=== PATIENT | male | born 1975 | race African-American/Black ===

== ENCOUNTER 2016-07-23 16:12 | Emergency (ER) | payer SELFPAY ==
[~2016-07-23 16:12] MED LIST: OXYC-323 PO
[2016-07-23 17:00] VITALS: BP 155/75
[2016-07-23] MEDS ORDERED: NAPROXEN 500 MG TABLET PO STA (17:23)
[2016-07-23] MEDS ORDERED: NAPR500T8 PO (17:36)
--- NOTE | 2016-07-23 17:37 | PHYS DOC ---
Past Medical History Past Medical History: Other Additional Past Medical Histor: chronic back pain Past Surgical History: Other Additional Past Surgical Histo: testicular surgery as a child Additional Information: 2 ppd Alcohol Use: Occasionally Drug Use: None Adult General Chief Complaint Chief Complaint: ANKLE PROBLEM HPI HPI Patient is a 40 year old left ankle pain that began today, patient states he was running with family members playing around when he rolled his ankle. Review of Systems Review of Systems Constitutional: Denies fever or chills [] Eyes: Denies change in visual acuity, redness, or eye pain [] Musculoskeletal: Left lateral ankle pain Integument: Denies rash or skin lesions [] Neurologic: Denies headache, focal weakness or sensory changes [] Endocrine: Denies polyuria or polydipsia [] Current Medications Current Medications Current Medications Medications (Trade) Dose Ordered Sig/Jaylen Start Time Stop Time Status Last Admin Dose Admin Naproxen (Naprosyn) 500 mg 1X STAT 07/23/16 17:23 07/23/16 17:25 DC Allergies Allergies Allergies Coded Allergies Type Severity Reaction Last Updated Verified No Known Drug Allergies 06/30/13 No Physical Exam Physical Exam Constitutional: Well developed, well nourished, no acute distress, non-toxic appearance. [] Skin: Warm, dry, no erythema, no rash. [] Back: No tenderness, no CVA tenderness. [] Extremities: Left ankle with no obvious deformity. Mild amount of soft tissue swelling noted on the left lateral ankle. Tenderness on palpation of the left lateral ankle. Full range of motion to the left ankle and foot. +2 left pedal pulse. Cap refill is 2 seconds and left lower extremity. Sensation intact to the left lower extremity. Neurologic: Alert and oriented X 3, normal motor function, normal sensory function, no focal deficits noted. [] Psychologic: Affect normal, judgement normal, mood normal. [] Current Patient Data Vital Signs Vital Signs Date Time Temp Pulse Resp B/P Pulse Ox O2 Delivery O2 Flow Rate FiO2 07/23/16 17:00 98.8 80 18 100 Room Air 98.8 EKG EKG [] Radiology/Procedures Radiology/Procedures [] Course & Med Decision Making Course & Med Decision Making Pertinent Labs and Imaging studies reviewed. (See chart for details) Patient is in the ED with left ankle sprain after rolling it. Left ankle x-ray interpreted by Dr. Saxena is negative for any acute findings. Patient was placed in an Aircast by the supply tech, neurovascular exam done but is normal, cap refill less than 2 seconds ice elevation encouraged. Discharged with naproxen for pain. Dragon Disclaimer Dragon Disclaimer This electronic medical record was generated, in whole or in part, using a voice recognition dictation system. Departure Departure Impression: Primary Impression: Left ankle sprain Disposition: HOME, SELF-CARE Condition: STABLE Referrals: NO PCP (PCP) MAGALI MARTIN II, MD Follow-up with the provided orthopedic doctor in one week Patient Instructions: Ankle Sprain Additional Instructions: You have left ankle sprain. Wear the air cast as needed and tolerated. Ice and elevate the extremity. Take anti-inflammatories or Tylenol as needed for pain. Follow-up with orthopedic doctor provided in one week if pain continues. Scripts Naproxen 500 Mg Tablet.dr1 Tab PO BID #60 TAB Ref 2 Prov:LOUIE SOL APRN 07/23/16 Problem Qualifiers Primary Impression: Left ankle sprain Encounter type: initial encounter Involved ligament of ankle: unspecified ligament Qualified Code: S93.402A - Sprain of unspecified ligament of left ankle, initial encounter LOUIE SOL APRN Jul 23, 2016 17:37
--- NOTE | 2016-07-24 11:14 | RAD ---
Three-view left ankle radiographs 07/23/2016 Clinical history: Twisting injury to the left ankle while running. AP, lateral and oblique digital radiographs of the left ankle were obtained. The left ankle mortise is intact. No fracture or dislocation of the left ankle is seen. Impression: No fracture or dislocation of the left ankle is seen.
== END 2016-07-23 17:45 | disposition home or self-care (01) ==
LOC: ER 16:12
DX: S93.402A Sprain of unspecified ligament of left ankle, initial encounter (principal); G89.29 Other chronic pain; F17.200 Nicotine dependence, unspecified, uncomplicated; X50.9XXA Other and unspecified overexertion or strenuous movements or postures, initial encounter; Y93.89 Activity, other specified; Y99.8 Other external cause status; Y92.89 Other specified places as the place of occurrence of the external cause
CPT/HCPCS: 73610; 99284; L4350

== ENCOUNTER 2016-08-21 22:28 | Emergency (ER) | payer SELFPAY ==
[~2016-08-21] VITALS: Ht 172.7 cm; Wt 86.2 kg
[~2016-08-21 22:28] MED LIST changes: +NAPR500T8 PO
[2016-08-21 22:44] VITALS: BP 156/95
[2016-08-21] MEDS ORDERED: LIDO20SO PO (23:02)
[2016-08-21] MEDS ORDERED: BENZ100C PO (23:02)
[2016-08-21] MEDS ORDERED: PROAIR RESPICL90 MCG IH (23:02)
[2016-08-21] MEDS ORDERED: PRED50TA PO (23:02)
--- NOTE | 2016-08-21 23:02 | PHYS DOC ---
Past Medical History Past Medical History: Other Additional Past Medical Histor: chronic back pain Past Surgical History: Other Additional Past Surgical Histo: testicular surgery as a child Alcohol Use: Occasionally Drug Use: None Adult General Chief Complaint Chief Complaint: COUGH HPI HPI Patient is a 40 year old male with history of smoking who presents today with a productive cough and sore throat that began yesterday. Patient denies any fever. He states he has been told by the mother before he has high blood pressure but never followed up. Review of Systems Review of Systems Constitutional: Denies fever or chills [] Eyes: Denies change in visual acuity, redness, or eye pain [] HENT: sore throat [] Respiratory: cough Cardiovascular: No additional information not addressed in HPI [] GI: Denies abdominal pain, nausea, vomiting, bloody stools or diarrhea [] : Denies dysuria or hematuria [] Musculoskeletal: Denies back pain or joint pain [] Integument: Denies rash or skin lesions [] Neurologic: Denies headache, focal weakness or sensory changes [] Endocrine: Denies polyuria or polydipsia [] Allergies Allergies Allergies Coded Allergies Type Severity Reaction Last Updated Verified No Known Drug Allergies 06/30/13 No Physical Exam Physical Exam Constitutional: Well developed, well nourished, no acute distress, non-toxic appearance. [] HENT: Normocephalic, atraumatic, bilateral external ears normal, oropharynx moist, no oral exudates, nose normal. [] Eyes: PERRLA, EOMI, conjunctiva normal, no discharge. [] Neck: Normal range of motion, no tenderness, supple, no stridor. [] Cardiovascular:Heart rate regular rhythm, no murmur [] Lungs & Thorax: Bilateral breath sounds clear to auscultation [] Abdomen: Bowel sounds normal, soft, no tenderness, no masses, no pulsatile masses. [] Skin: Warm, dry, no erythema, no rash. [] Back: No tenderness, no CVA tenderness. [] Extremities: No tenderness, no cyanosis, no clubbing, ROM intact, no edema. [] Neurologic: Alert and oriented X 3, normal motor function, normal sensory function, no focal deficits noted. [] Psychologic: Affect normal, judgement normal, mood normal. [] Current Patient Data Vital Signs Vital Signs Date Time Temp Pulse Resp B/P (MAP) Pulse Ox O2 Delivery O2 Flow Rate FiO2 08/21/16 22:44 98.1 84 18 98 Room Air 98.1 EKG EKG [] Radiology/Procedures Radiology/Procedures [] Course & Med Decision Making Course & Med Decision Making Pertinent Labs and Imaging studies reviewed. (See chart for details) This is a 40-year-old male patient with complaints of sore throat and a cough that began yesterday. Negative rapid strep. Patient has history of smoking. We highly recommended he consider smoking cessation. Symptoms are probably viral pharyngitis and viral bronchitis. Discharged with prednisone for 5 days albuterol inhaler and Tessalon Perles. Discharged with lidocaine viscous for sore throat. His blood pressure was 159/95, he states he has been told by the mother he has hypertension but has never followed up. We did give him a primary care doctor we recommended he follows up as soon as possible. Dragon Disclaimer Dragon Disclaimer This electronic medical record was generated, in whole or in part, using a voice recognition dictation system. Departure Departure Impression: Primary Impression: Acute bronchitis Additional Impressions: Viral pharyngitis Smoking addiction High blood pressure Disposition: HOME, SELF-CARE Condition: STABLE Referrals: NO PCP (PCP) Please follow-up with a primary care doctor from the list provided Patient Instructions: Acute Bronchitis, Hypertension, Smoking Cessation, Viral and Bacterial Pharyngitis, [id number] Additional Instructions: You were seen for acute bronchitis and viral pharyngitis. Please use the prescribed medicines as ordered. Please consider smoking cessation. Your blood pressure was 159/95 in the emergency room. This is high. Normal blood pressure is 120/80. Establish care with a primary care doctor from the list provided and follow-up as soon as possible. Scripts Lidocaine Hcl (LIDOCAINE HCL VISCOUS) 20 Mg/1 Ml Solution 5 ML PO TID, #100 ML Prov: MUTUNGALOUIE CONTRACT ATTORNEY 08/21/16 Benzonatate (TESSALON PERLE) 100 Mg Capsule 1 CAP PO TID, #30 CAP Prov: MUTUNGA,LOUIE CONTRACT ATTORNEY 08/21/16 Prednisone (PREDNISONE) 50 Mg Tablet 1 TAB PO DAILY, #5 TAB Prov: MUTUNGA,LOUIE CONTRACT ATTORNEY 08/21/16 Albuterol Sulfate (Proair Respiclick) 90 Mcg Aer.pow.ba 1 PUFF IH PRN Q6HRS Y for SHORTNESS OF BREATH, #1 INHALER Prov: LOUIE SOL CONTRACT ATTORNEY 08/21/16 Problem Qualifiers Primary Impression: Acute bronchitis Bronchitis organism: unspecified organism Qualified Codes: J20.9 - Acute bronchitis, unspecified Additional Impressions: High blood pressure Hypertension type: unspecified secondary hypertension Qualified Codes: I15.9 - Secondary hypertension, unspecified LOUIE SOL CONTRACT ATTORNEY August 21, 2016 23:02
[2016-08-22 07:53] LABS: NEGATIVE OBC STREP NEG; POSITIVE OBC STREP POS
== END 2016-08-21 23:05 | disposition home or self-care (01) ==
LOC: ER 22:28
DX: J20.9 Acute bronchitis, unspecified (principal); J02.8 Acute pharyngitis due to other specified organisms; B97.89 Other viral agents as the cause of diseases classified elsewhere; R03.0 Elevated blood-pressure reading, without diagnosis of hypertension; F17.200 Nicotine dependence, unspecified, uncomplicated; G89.29 Other chronic pain
CPT/HCPCS: 87070; 87880; 99283

== ENCOUNTER 2016-11-18 17:17 | Emergency (ER) | payer SELFPAY ==
[~2016-11-18] VITALS: Ht 172.7 cm; Wt 86.2 kg
[~2016-11-18 17:17] MED LIST changes: +BENZ100C PO; +LIDO20SO PO; +PRED50TA PO; +PROAIR RESPICL90 MCG IH
[2016-11-18 18:01] LABS: BASO % 1 % (0-3); EOS % 3 % (0-3); HEMOGLOBIN 14.5 g/dL (13.0-17.5); LYMPH # 2.2 x10^3/uL (1.0-4.8); LYMPH % 28 % (24-48); MEAN CORPUSCULAR HEMOGLOBIN 31 pg (25-35); MEAN CORPUSCULAR HGB CONC 34 g/dL (31-37); MEAN CORPUSCULAR VOLUME 90 fL (79-100); MONO % 8 % (0-9); NEUT % 60 % (31-73); PLATELET COUNT 254 x10^3/uL (140-400); RED BLOOD COUNT 4.76 x10^6/uL (4.30-5.70); RED CELL DISTRIBUTION WIDTH 13.9 % (11.5-14.5); WHITE BLOOD COUNT 7.8 x10^3/uL (4.0-11.0)
[2016-11-18 18:25] LABS: CALCIUM 9.1 mg/dL (8.5-10.1); CREATININE 1.1 mg/dL (0.7-1.3); GFR 90.2; POTASSIUM 3.6 mmol/L (3.5-5.1)
[2016-11-18 18:32] LABS: ALBUMIN 3.9 g/dL (3.4-5.0); TOTAL BILIRUBIN 0.4 mg/dL (0.2-1.0); TOTAL PROTEIN 7.9 g/dL (6.4-8.2)
[2016-11-18] MEDS ORDERED: KETOROLAC 15 MG/ML VIAL. IV ONE (19:00)
[2016-11-18] MEDS ORDERED: amLODIPine BESYLATE 5 MG TABLET PO ONE (19:00)
[2016-11-18] MEDS ORDERED: ONDANSETRON PF 4 MG/2 ML VIAL. IV ONE (19:00)
[2016-11-18] MEDS ORDERED: HYDROmorphone 2 MG/ML VIAL IV ONE (19:00)
[2016-11-18 19:52] LABS: BARBITURATES NEG (NEG); BENZODIAZEPINES NEG (NEG); BILIRUBIN,URINE NEGATIVE (NEG); CANNABINOIDS NEG (NEG); COCAINE NEG (NEG); GLUCOSE,URINE NEGATIVE (NEG); METHADONE NEG (NEG); NITRITE,URINE NEGATIVE (NEG); OPIATES NEG (NEG); PHENCYCLIDINE NEG (NEG); PROTEIN,URINE NEGATIVE (NEG-TRACE)
[2016-11-18 20:00] VITALS: BP 138/84
[2016-11-18] MEDS ORDERED: AMLO10TA4 PO (20:02)
[2016-11-18] MEDS ORDERED: IBUP-1007 PO (20:02)
--- NOTE | 2016-11-18 20:04 | PHYS DOC ---
Past Medical History Past Medical History: No Pertinent History Additional Past Medical Histor: chronic back pain Past Surgical History: Other Additional Past Surgical Histo: testicular surgery as a child Additional Information: 1 PACK/DAY Alcohol Use: Occasionally Drug Use: None Adult General Chief Complaint Chief Complaint: Palpitations HPI HPI Patient is a 40 year old gentleman who presents here today secondary to having headache. Patient also reports that he felt some fluttering in his chest. Patient has any hypertension diabetes liver longer kidney problems. Patient has any abdominal or chest surgeries. Patient reports he does smoke and does not drink or do any drugs. Patient has no known drug allergies. Patient has any fevers shakes chills nausea vomiting diarrhea. Patient reports she's had some URI symptoms or cough. Patient has any chest pain or shortness of breath. Patient reports she's had headaches in the past and is very similar to his prior headaches. Usually is able to take [id number] medications however today he just did not feel well so he came to the ER. Patient denies any pain rating his arm his jaw his back. Patient has any diaphoresis shortness of breath. Patient denies any exertional component to the fluttering in his chest. Review of systems: Constitutional: Denies fever or chills Eyes: Denies change in visual acuity, redness, or eye pain HENT: Denies nasal congestion or sore throat All other review systems are negative except as documented in the history of present illness portion. Physical exam: Constitutional: Well developed, well nourished, no acute distress, non-toxic appearance. Normal funduscopic exam HENT: Normocephalic, atraumatic, bilateral external ears normal, nose normal. Eyes: EOMI, conjunctiva normal, no discharge. Neck: Normal range of motion, no tenderness, supple, no stridor. Cardiovascular:Heart rate regular rhythm Lungs & Thorax: Bilateral breath sounds clear to auscultation no respiratory distress Abdomen: Bowel sounds normal, soft, no tenderness, no masses, no pulsatile masses. Skin: Warm, dry, no erythema, no rash. Back: No tenderness, no CVA tenderness. Extremities: No tenderness, no cyanosis, no clubbing, ROM intact, no edema. Neurologic: Alert and oriented X 3, normal motor function, normal sensory function, no focal deficits noted. Psychologic: Affect normal, judgement normal, mood normal. Patient's physical exam the ER was unremarkable. EKG reveals Normal sinus rhythm at a heart rate of [address]-T wave abnormalities. No evidence of ST elevation [place]. Normal intervals and no evidence of LVH. Interpreted by ANNEL Acosta. Patient's ER workup is unremarkable. Patient has a normal CBC and chemistry. Patient's blood pressure was elevated in the ER. Despite be contributing to his headache. Assessment and plan 1. Migraine headache. Patient's clinically and hemodynamically stable. Patient be given Toradol and Zofran and 0.5 Dilaudid was resolution of his headache. Patient feels much better. Patient is now laughing and joking in the room and feels well to go home. 2. Hypertension. Etiology of the patient's hypertension is unclear. This is likely hereditary. I discussed with the patient is need to follow-up with his primary care physician in order to be treated long-term. Patient understands that this might be a result of his headache or might be exacerbating his headache. Patient be treated for his headache in the ED and his blood pressure still mildly elevated. Patient has been given a dose of Norvasc 10 mg by mouth in the ED. Patient be discharged home with prescription for 10 mg of Norvasc daily and instructions to follow-up with primary care physician for further evaluation and management of his hypertension. 3. Palpitations: Patient's clinically and hemodynamically stable. Patient's EKG is unremarkable. Patient is low risk for cardiac etiology of his symptoms. Patient will be discharged home in stable condition with instructions to follow- up with his primary care physician for possible Holter monitoring to further evaluate these symptoms. Current Medications Current Medications Current Medications Medications (Trade) Dose Ordered Sig/Jaylen Start Time Stop Time Status Last Admin Dose Admin Amlodipine Besylate (Norvasc) 10 mg 1X ONCE 11/18/16 19:00 11/18/16 19:01 DC 11/18/16 19:04 10 MG Hydromorphone HCl (Dilaudid) 0.5 mg 1X ONCE 11/18/16 19:00 11/18/16 19:01 DC 11/18/16 19:03 0.5 MG Ketorolac Tromethamine (Toradol) 15 mg 1X ONCE 11/18/16 19:00 11/18/16 19:01 DC 11/18/16 19:03 15 MG Ondansetron HCl (Zofran) 4 mg 1X ONCE 11/18/16 19:00 11/18/16 19:01 DC 11/18/16 19:03 4 MG Allergies Allergies Allergies Coded Allergies Type Severity Reaction Last Updated Verified No Known Drug Allergies 06/30/13 No Current Patient Data Vital Signs Vital Signs Date Time Temp Pulse Resp B/P (MAP) Pulse Ox O2 Delivery O2 Flow Rate FiO2 11/18/16 19:04 83 155/96 11/18/16 17:26 99.2 18 97 Room Air 99.2 Lab Values Laboratory Tests Test 11/18/16 17:40 11/18/16 19:38 White Blood Count 7.8 x10^3/uL (4.0-11.0) Red Blood Count 4.76 x10^6/uL (4.30-5.70) Hemoglobin 14.5 g/dL (13.0-17.5) Hematocrit 43.0 % (39.0-53.0) Mean Corpuscular Volume 90 fL (79-100) Mean Corpuscular Hemoglobin 31 pg (25-35) Mean Corpuscular Hemoglobin Concent 34 g/dL (31-37) Red Cell Distribution Width 13.9 % (11.5-14.5) Platelet Count 254 x10^3/uL (140-400) Neutrophils (%) (Auto) 60 % (31-73) Lymphocytes (%) (Auto) 28 % (24-48) Monocytes (%) (Auto) 8 % (0-9) Eosinophils (%) (Auto) 3 % (0-3) Basophils (%) (Auto) 1 % (0-3) Neutrophils # (Auto) 4.7 x10^3uL (1.8-7.7) Lymphocytes # (Auto) 2.2 x10^3/uL (1.0-4.8) Monocytes # (Auto) 0.7 x10^3/uL (0.0-1.1) Eosinophils # (Auto) 0.2 x10^3/uL (0.0-0.7) Basophils # (Auto) 0.0 x10^3/uL (0.0-0.2) Sodium Level 143 mmol/L (136-145) Potassium Level 3.6 mmol/L (3.5-5.1) Chloride Level 104 mmol/L (98-107) Carbon Dioxide Level 28 mmol/L (21-32) Anion Gap 11 (6-14) Blood Urea Nitrogen 20 mg/dL (8-26) Creatinine 1.1 mg/dL (0.7-1.3) Estimated GFR (Cockcroft-Gault) 90.2 BUN/Creatinine Ratio 18 (6-20) Glucose Level 112 mg/dL (70-99) H Calcium Level 9.1 mg/dL (8.5-10.1) Total Bilirubin 0.4 mg/dL (0.2-1.0) Aspartate Amino Transferase (AST) 17 U/L (15-37) Alanine Aminotransferase (ALT) 33 U/L (16-63) Alkaline Phosphatase 56 U/L (46-116) Troponin I Quantitative < 0.017 ng/mL (0.000-0.055) Total Protein 7.9 g/dL (6.4-8.2) Albumin 3.9 g/dL (3.4-5.0) Albumin/Globulin Ratio 1.0 (1.0-1.7) Urine Opiates Screen Neg (NEG) Urine Methadone Screen Neg (NEG) Urine Barbiturates Neg (NEG) Urine Phencyclidine Screen Neg (NEG) Urine Amphetamine/Methamphetamine Neg (NEG) Urine Benzodiazepines Screen Neg (NEG) Urine Cocaine Screen Neg (NEG) Urine Cannabinoids Screen Neg (NEG) Urine Ethyl Alcohol Neg (NEG) Laboratory Tests 11/18/16 17:40 Laboratory Tests 11/18/16 17:40 EKG EKG [] Radiology/Procedures Radiology/Procedures [] Course & Med Decision Making Course & Med Decision Making Pertinent Labs and Imaging studies reviewed. (See chart for details) [] Dragon Disclaimer Dragon Disclaimer This electronic medical record was generated, in whole or in part, using a voice recognition dictation system. Departure Departure Impression: Primary Impression: Hypertension Additional Impressions: Palpitations Migraine headache Disposition: HOME, SELF-CARE Condition: IMPROVED Referrals: NO PCP (PCP) Patient Instructions: Hypertension, Migraine Headache, Palpitations Additional Instructions: Thank you for allowing us to participate in your care today. Followup with your primary care physician in 3 days if your symptoms do not improve. Call your Primary Doctor tomorrow and inform them of your visit today. If you do not have a primary care provider you can ask for a list of our primary care providers. Return to the emergency department you have any new or concerning findings. This should be evaluated by the primary care physician and any necessary consulting services for continued management within a few days after discharge. Return to emergency room if you have any new or concerning symptoms including but not limited to fever, chills, nausea, vomiting, intractable pain, any new rashes, chest pain, shortness of air, uncontrolled bleeding, difficulty breathing, and/or vision loss. You may have been prescribed medication that can change in your level of thinking and ability to operate machinery. These medications include hydrocodone and Ativan. Also, Benadryl has been known to do this as well. Be sure to check with your pharmacist and ask if the medications you've prescribed can affect your level of consciousness. I recommend not operating heavy machinery or driving while on medication such as these. Scripts Amlodipine Besylate (NORVASC) 10 Mg Tablet 10 MG PO DAILY, #30 TAB Prov: MELISSA ENGLE MD 11/18/16 Ibuprofen (IBUPROFEN) 600 Mg Tablet 600 MG PO PRN Q6HRS Y for PAIN, #20 TAB Prov: MELISSA ENGLE MD 11/18/16 Problem Qualifiers MELISSA ENGLE MD Nov 18, 2016 20:04
[2016-11-18 20:17] LABS: BACTERIA,URINE FEW /HPF (0-FEW); RBC,URINE 0 /HPF (0-2); SQUAMOUS EPITHELIAL CELL,UR OCC /LPF
--- NOTE | 2016-11-19 07:14 | EKG ---
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
== END 2016-11-18 20:30 | disposition home or self-care (01) ==
LOC: ER 17:17
DX: I10 Essential (primary) hypertension (principal); R00.2 Palpitations; G43.909 Migraine, unspecified, not intractable, without status migrainosus; G89.29 Other chronic pain; F17.210 Nicotine dependence, cigarettes, uncomplicated
CPT/HCPCS: 36415; 80053; 80307; 81001; 84484; 85025; 87086; 93005; 96374; 96375; 99285; J1170; J1885; J2405; G0479

== ENCOUNTER 2017-02-25 17:44 | Emergency (ER) | payer BC ==
[~2017-02-25] VITALS: Ht 172.7 cm; Wt 98.4 kg
[~2017-02-25 17:44] MED LIST changes: +AMLO10TA4 PO; +IBUP-1007 PO
[2017-02-25 17:45] VITALS: BP 134/84
[2017-02-25 18:02] LABS: BILIRUBIN,URINE NEGATIVE (NEG); GLUCOSE,URINE NEGATIVE (NEG); NITRITE,URINE NEGATIVE (NEG); PROTEIN,URINE NEGATIVE (NEG-TRACE)
[2017-02-25 18:10] LABS: BACTERIA,URINE 0 /HPF (0-FEW); RBC,URINE 0 /HPF (0-2); SQUAMOUS EPITHELIAL CELL,UR FEW /LPF
[2017-02-25] MEDS ORDERED: PHEN-318 PO (18:18)
--- NOTE | 2017-02-25 18:18 | PHYS DOC ---
Past Medical History Past Medical History: No Pertinent History Additional Past Medical Histor: chronic back pain Past Surgical History: Other Additional Past Surgical Histo: testicular surgery as a child Alcohol Use: Occasionally Drug Use: None Adult General Chief Complaint Chief Complaint: PAIN ON URINATION HPI HPI Patient is a 41 year old male presenting to the emergency department for evaluation of dysuria especially after he finishes his urine stream. This has been going on for 1-2 weeks and he says that he had sexual activity with someone that he is concerned may have given him something. He denies any discharge fevers chills abdominal pain nausea vomiting. He denies any penile lesions and he is in no obvious distress with normal vital signs. Review of Systems Review of Systems Constitutional: Denies fever or chills [] GI: Denies abdominal pain, nausea, vomiting, bloody stools or diarrhea [] : + dysuria Integument: Denies rash or skin lesions [] Current Medications Current Medications Current Medications Medications (Trade) Dose Ordered Sig/Jaylen Start Time Stop Time Status Last Admin Dose Admin Azithromycin (Zithromax) 1,000 mg 1X ONCE 02/25/17 18:30 02/25/17 18:31 02/25/17 18:05 1,000 MG Ceftriaxone Sodium (Rocephin Im) 250 mg 1X ONCE 02/25/17 18:30 02/25/17 18:31 02/25/17 18:06 250 MG Allergies Allergies Allergies Coded Allergies Type Severity Reaction Last Updated Verified No Known Drug Allergies 06/30/13 No Physical Exam Physical Exam Constitutional: Well developed, well nourished, no acute distress, non-toxic appearance. [] Abdomen: Bowel sounds normal, soft, no tenderness, no masses, no pulsatile masses. exam revealed no obvious swelling or penile lesions Current Patient Data Vital Signs Vital Signs Date Time Temp Pulse Resp B/P (MAP) Pulse Ox O2 Delivery O2 Flow Rate FiO2 02/25/17 17:45 98.0 77 16 97 Room Air 98.0 Lab Values Laboratory Tests Test 02/25/17 17:50 Urine Collection Type Unknown Urine Color Yellow Urine Clarity Clear Urine pH 7.0 Urine Specific [place] 1.025 Urine Protein Negative mg/dL (NEG-TRACE) Urine Glucose (UA) Negative mg/dL (NEG) Urine Ketones (Stick) Negative mg/dL (NEG) Urine Blood Negative (NEG) Urine Nitrite Negative (NEG) Urine Bilirubin Negative (NEG) Urine Urobilinogen Dipstick 1.0 mg/dL (0.2 mg/dL) Urine Leukocyte Esterase Small (NEG) Urine RBC 0 /HPF (0-2) Urine WBC 5-10 /HPF (0-4) Urine Squamous Epithelial Cells Few /LPF Urine Bacteria 0 /HPF (0-FEW) Urine Mucus Mod /LPF EKG EKG [] Radiology/Procedures Radiology/Procedures [] Course & Med Decision Making Course & Med Decision Making Patient will be treated with Rocephin and Zithromax and given per EMS and outpatient for the burning and told to have any partners treated or condoms and return with any concerns. Patient aware and agreeable with plan and verbalized understanding of the above instructions. Dragon Disclaimer Dragon Disclaimer This electronic medical record was generated, in whole or in part, using a voice recognition dictation system. Departure Departure Impression: Primary Impression: Dysuria Additional Impression: STD exposure Disposition: HOME, SELF-CARE Condition: STABLE Referrals: NO PCP (PCP) Patient Instructions: Dysuria Scripts Phenazopyridine Hcl (PYRIDIUM) 200 Mg Tablet 200 MG PO TID, #6 TAB Prov: VIOLETTA WILSON DO 02/25/17 Problem Qualifiers VIOLETTA WILSON DO Feb 25, 2017 18:18
[2017-02-25] MEDS ORDERED: AZITHROMYCIN 250 MG TABLET. PO ONE (18:30)
[2017-02-25] MEDS ORDERED: cefTRIAXone IM 250 MG VIAL IM ONE (18:30)
== END 2017-02-25 18:25 | disposition home or self-care (01) ==
LOC: ER 17:44
DX: R30.0 Dysuria (principal); Z20.2 Contact with and (suspected) exposure to infections with a predominantly sexual mode of transmission; G89.29 Other chronic pain
CPT/HCPCS: 81001; 87086; 87491; 87591; 96372; 99284; J0696; Q0144

== ENCOUNTER 2017-10-15 09:59 | Emergency (ER) | payer BC ==
[2017-10-15] MEDS: BUTALB/APAP/CAFEIN 50/325/40MG TABLET. PO ×2 (11:04)
== END 2017-10-15 12:25 | disposition home or self-care (01) ==
LOC: ER 09:59
DX: H66.93 Otitis media, unspecified, bilateral (principal); R51 Headache; G89.29 Other chronic pain; R09.81 Nasal congestion
CPT/HCPCS: 99283

== ENCOUNTER 2017-12-25 15:18 | Emergency (ER) | payer SELFPAY ==
[~2017-12-25] VITALS: Ht 172.7 cm; Wt 102.1 kg
[~2017-12-25 15:18] MED LIST changes: +AMOX875T PO; +BUTA1CAP31 PO; +BUTA1TAB23 PO; +PHEN-318 PO
[2017-12-25 15:56] LABS: BASO # 0.1 x10^3/uL (0.0-0.2); BASO % 1 % (0-3); EOS # 0.5 x10^3/uL (0.0-0.7); EOS % 7 % (0-3); HEMATOCRIT 41.6 % (39.0-53.0); HEMOGLOBIN 14.2 g/dL (13.0-17.5); LYMPH # 2.6 x10^3/uL (1.0-4.8); LYMPH % 39 % (24-48); MEAN CORPUSCULAR HEMOGLOBIN 31 pg (25-35); MEAN CORPUSCULAR HGB CONC 34 g/dL (31-37); MEAN CORPUSCULAR VOLUME 91 fL (79-100); MONO # 0.8 x10^3/uL (0.0-1.1); MONO % 12 % (0-9); NEUT # 2.7 x10^3uL (1.8-7.7); NEUT % 41 % (31-73); PLATELET COUNT 282 x10^3/uL (140-400); RED BLOOD COUNT 4.58 x10^6/uL (4.30-5.70); RED CELL DISTRIBUTION WIDTH 13.8 % (11.5-14.5); WHITE BLOOD COUNT 6.6 x10^3/uL (4.0-11.0)
[2017-12-25 16:06] LABS: CREATININE 1.1 mg/dL (0.7-1.3); GFR 89.3
[2017-12-25 16:13] LABS: ALBUMIN 3.5 g/dL (3.4-5.0); ALBUMIN/GLOBULIN RATIO 0.9 (1.0-1.7); TOTAL BILIRUBIN 0.3 mg/dL (0.2-1.0); TOTAL PROTEIN 7.5 g/dL (6.4-8.2)
--- NOTE | 2017-12-25 16:14 | PHYS DOC ---
Past Medical History Past Medical History: Hypertension Additional Past Medical Histor: chronic back pain Past Surgical History: Other Additional Past Surgical Histo: testicular surgery as a child Smoking: Cigarettes, Less than 1pk/day Alcohol Use: Occasionally Drug Use: None Adult General Chief Complaint Chief Complaint: CHEST PAIN HPI HPI 42-year-old male presents to ER via POV with complaints of waking from a nap at 2 PM and had onset of mid epigastric and chest pain. Patient states when pain started he rated at 8/10 denying radiation of pain. Patient reports with pain he felt slightly short of air denying any cough. Patient denies nausea or vomiting, diaphoresis, or palpitations. Pt reports pain is sharp in nature denying anything aggravates or improves discomfort. Patient states prior to nap he had chicken noodle soup with large amount of Cajun seasoning. Patient denies any recent illness or travel. Pt denies any heavy lifting or injuries. Pt reports since onset pain has improved with no OTC meds and currently rates at 5- 6/10. Pt during exam has concerns for clear penile discharge with some dysuria- denying rash, new sexual partners, or pain. Pt denies any previous STDs or partner with sxs. He denies concerns for STDs but requested tests. Pt reports he smokes approx. 1/2 ppd cigarettes. He doesn't think there's family hx of CAD. Review of Systems Review of Systems Constitutional: Denies fever or chills [] Eyes: Denies change in visual acuity, redness, or eye pain [] HENT: Denies nasal congestion or sore throat [] Respiratory: Denies cough. Reports when pain increased he felt SOA denies currently Cardiovascular: Reports mid epigastric/chest pain- denies palpitations. GI: Denies abdominal pain, nausea, vomiting, bloody stools or diarrhea [] : Denies hematuria/incontinence. Reports dysuria with clear discharge- denies odor with discharge or rash Musculoskeletal: Denies back pain or joint pain [] Integument: Denies rash or skin lesions [] Neurologic: Denies headache, focal weakness or sensory changes [] All other systems were reviewed and found to be within normal limits, except as documented in this note. Current Medications Current Medications Current Medications Medications (Trade) Dose Ordered Sig/Jaylen Start Time Stop Time Status Last Admin Dose Admin Aspirin (Children'S Aspirin) 324 mg 1X ONCE 12/25/17 16:00 12/25/17 16:01 DC 12/25/17 17:16 324 MG Multi-Ingredient Mouthwash/Gargle (Gi Cocktail) 20 ml 1X ONCE 12/25/17 16:00 12/25/17 16:01 DC 12/25/17 17:16 20 ML Allergies Allergies Allergies Coded Allergies Type Severity Reaction Last Updated Verified No Known Drug Allergies 06/30/13 No Physical Exam Physical Exam Constitutional: Well developed, well nourished, no acute distress, non-toxic appearance. [] HENT: Normocephalic, atraumatic, bilateral ears normal, oropharynx moist, no oral exudates, nose normal. [] Eyes: PERRLA, conjunctiva normal, no discharge. [] Neck: Normal range of motion, no tenderness, supple, no stridor. [] Cardiovascular:Heart rate regular rhythm, no murmur [] Lungs & Thorax: Bilateral breath sounds clear to auscultation. Resp. equal/ nonlabored. Speaking in full sentences Abdomen: Bowel sounds normal, soft, no tenderness, no masses, no pulsatile masses. [] Skin: Warm, dry, no erythema, no rash. [] Back: No tenderness, no CVA tenderness. [] Extremities: No tenderness, no cyanosis, no clubbing, ROM intact, no edema. [] Neurologic: Alert and oriented X 3, normal motor function, normal sensory function, no focal deficits noted. [] Psychologic: Affect normal, judgement normal, mood normal. [] Current Patient Data Vital Signs Vital Signs Date Time Temp Pulse Resp B/P (MAP) Pulse Ox O2 Delivery O2 Flow Rate FiO2 12/25/17 19:31 59 15 152/97 (115) 100 Room Air 12/25/17 15:30 98.1 98.1 Lab Values Laboratory Tests Test 12/25/17 15:36 12/25/17 16:10 12/25/17 18:25 White Blood Count 6.6 x10^3/uL (4.0-11.0) Red Blood Count 4.58 x10^6/uL (4.30-5.70) Hemoglobin 14.2 g/dL (13.0-17.5) Hematocrit 41.6 % (39.0-53.0) Mean Corpuscular Volume 91 fL (79-100) Mean Corpuscular Hemoglobin 31 pg (25-35) Mean Corpuscular Hemoglobin Concent 34 g/dL (31-37) Red Cell Distribution Width 13.8 % (11.5-14.5) Platelet Count 282 x10^3/uL (140-400) Neutrophils (%) (Auto) 41 % (31-73) Lymphocytes (%) (Auto) 39 % (24-48) Monocytes (%) (Auto) 12 % (0-9) H Eosinophils (%) (Auto) 7 % (0-3) H Basophils (%) (Auto) 1 % (0-3) Neutrophils # (Auto) 2.7 x10^3uL (1.8-7.7) Lymphocytes # (Auto) 2.6 x10^3/uL (1.0-4.8) Monocytes # (Auto) 0.8 x10^3/uL (0.0-1.1) Eosinophils # (Auto) 0.5 x10^3/uL (0.0-0.7) Basophils # (Auto) 0.1 x10^3/uL (0.0-0.2) Sodium Level 144 mmol/L (136-145) Potassium Level 4.0 mmol/L (3.5-5.1) Chloride Level 108 mmol/L (98-107) H Carbon Dioxide Level 27 mmol/L (21-32) Anion Gap 9 (6-14) Blood Urea Nitrogen 18 mg/dL (8-26) Creatinine 1.1 mg/dL (0.7-1.3) Estimated GFR (Cockcroft-Gault) 89.3 BUN/Creatinine Ratio 16 (6-20) Glucose Level 109 mg/dL (70-99) H Calcium Level 9.0 mg/dL (8.5-10.1) Total Bilirubin 0.3 mg/dL (0.2-1.0) Aspartate Amino Transferase (AST) 15 U/L (15-37) Alanine Aminotransferase (ALT) 23 U/L (16-63) Alkaline Phosphatase 60 U/L (46-116) Troponin I Quantitative < 0.017 ng/mL (0.000-0.055) < 0.017 ng/mL (0.000-0.055) Total Protein 7.5 g/dL (6.4-8.2) Albumin 3.5 g/dL (3.4-5.0) Albumin/Globulin Ratio 0.9 (1.0-1.7) L Lipase 145 U/L (73-393) Urine Collection Type Unknown Urine Color Yellow Urine Clarity Cloudy Urine pH 7.5 Urine Specific [place] 1.025 Urine Protein Negative mg/dL (NEG-TRACE) Urine Glucose (UA) Negative mg/dL (NEG) Urine Ketones (Stick) Negative mg/dL (NEG) Urine Blood Negative (NEG) Urine Nitrite Negative (NEG) Urine Bilirubin Negative (NEG) Urine Urobilinogen Dipstick 1.0 mg/dL (0.2 mg/dL) Urine Leukocyte Esterase Trace (NEG) Urine RBC 0 /HPF (0-2) Urine WBC 11-20 /HPF (0-4) Urine Squamous Epithelial Cells Mod /LPF Urine Amorphous Sediment Present /HPF Urine Bacteria 0 /HPF (0-FEW) Urine Mucus Mod /LPF Urine Chlamydia DNA (PCR) Negative (Negative) Neisseria gonorrhoeae DNA (PCR) Negative (Negative) Laboratory Tests 12/25/17 15:36 Laboratory Tests 12/25/17 15:36 EKG EKG EKG obtained 12/25/17 at [address] Arroyo Sinus rhythm Nonspecific T abnorm Vent rate 69 No acute STEMI Radiology/Procedures Radiology/Procedures PROCEDURE: CHEST PA & LATERAL AP and Lateral Views of the Chest 12/25/2017 3:52 PM Indication: MID EPIGASTRIC/CHEST PAIN X1 DAY. Comparison: None Findings: There is no focal consolidation or infiltrate identified. The cardiomediastinal silhouette is within normal limits. There is no evidence of pneumothorax or pleural effusion. No acute osseous abnormalities are identified. Impression: No evidence of acute cardiopulmonary process. Electronically signed by: Sean Fox MD (12/25/2017 4:14 PM) [id number] DICTATED and SIGNED BY: SEAN FOX MD DATE: 12/25/17 2656 Course & Med Decision Making Course & Med Decision Making Pertinent Labs and Imaging studies reviewed. (See chart for details) Discussed pt's case and plan of care with Dr. Arroyo- pt with HEART score of 1 with past hx of HTN and daily smoker as risk factors. Will give 324mg aspirin while tests pending. 1705: There was a delay with pt receiving ordered medications so he hasn't received GI cocktail and rates pain still at 5-6/10. Discussed test results with pt- chest xray with no acute findings- labs unremarkable and EKG with no acute STEMI- troponin <0.017. With pt having onset of chest pain at 2 p.m. discussed obtaining 2nd troponin while in ER to further r/o ACS. 1850: Discussed test results with pt with repeat troponin <0.017. Discussed UTI with UA showing 11-20 leuks neg. nitrates/blood. Pt reports following GI cocktail his pain subsided in mid epig/chest area and during this discussion he has no complaints remaining nontoxic in appearance. Discussed with neg. cardiac enzymes and no STEMI on EKG with pt being low risk- plans were to discharge pt home with Rx for Keflex for UTI. Discussed pending UA cxs and with pt having minimal concerns for STDs will hold off on tx. Pt advised to f/u on cxs in next 1-2 days for results. Smoking cessation was discussed and pt encouraged to increase water intake. Will provide community resources for clinics/physicians to f/u with. Discharge instructions were discussed and education provided on signs and symptoms to return to ER for. Patient is agreeable with discharge plan. Staff Physician Addendum: I was working in the ER during the course of this patient's visit. I was available for consultation as needed, but I was not directly involved in the care of this patient. Dragon Disclaimer Dragon Disclaimer This electronic medical record was generated, in whole or in part, using a voice recognition dictation system. Departure Departure Impression: Primary Impression: Chest pain Additional Impression: UTI (urinary tract infection) Disposition: HOME, SELF-CARE Condition: STABLE Referrals: NO PCP (PCP) Patient Instructions: Chest Pain (Nonspecific), Urinary Tract Infection Additional Instructions: Avoid spicy foods- recommended follow-up with primary doctor to discuss daily medications for acid reflux if symptoms persist. Stop smoking as this increases your risks of cardiac injury. Drink plenty of water and take finish antibiotics. If symptoms persist follow- up with primary doctor for re-evaluation. Your cultures are pending- follow-up on those results in next 1-2 days for results. Scripts Cephalexin (KEFLEX) 500 Mg Capsule 1 CAP PO BID, #14 CAP 0 Refills Prov: SHERIN SAHA OVERLOCK ELASTIC ATTACHER 12/25/17 Problem Qualifiers REFFITT,SHERIN M OVERLOCK ELASTIC ATTACHER Dec 25, 2017 16:14 LEIA ARROYO MD Dec 27, 2017 06:25
[2017-12-25 16:18] LABS: BILIRUBIN,URINE NEGATIVE (NEG); CLARITY,URINE CLOUDY; COLOR,URINE YELLOW; NITRITE,URINE NEGATIVE (NEG); PH,URINE 7.5; PROTEIN,URINE NEGATIVE (NEG-TRACE)
--- NOTE | 2017-12-25 16:18 | RAD ---
AP and Lateral Views of the Chest 12/25/2017 3:52 PM Indication: MID EPIGASTRIC/CHEST PAIN X1 DAY. Comparison: None Findings: There is no focal consolidation or infiltrate identified. The cardiomediastinal silhouette is within normal limits. There is no evidence of pneumothorax or pleural effusion. No acute osseous abnormalities are identified. Impression: No evidence of acute cardiopulmonary process. Electronically signed by: Sean Machado MD (12/25/2017 4:14 PM) [facility]
[2017-12-25 16:58] LABS: AMORPHOUS SEDIMENT,UR PRESENT /HPF; BACTERIA,URINE 0 /HPF (0-FEW); RBC,URINE 0 /HPF (0-2); SQUAMOUS EPITHELIAL CELL,UR MOD /LPF
[2017-12-25] MEDS: ASPIRIN CHEWABLE 81 MG TABLET. PO ONE (17:16)
[2017-12-25] MEDS: LIDO:MAALOX 1:1 20 ML SINGLE DOSE. SWSW ONE (17:16)
[2017-12-25] MEDS ORDERED: CEPH-264 PO (18:56)
[2017-12-25 19:31] VITALS: BP 152/97
--- NOTE | 2017-12-25 20:43 | EKG ---
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
== END 2017-12-25 19:55 | disposition home or self-care (01) ==
LOC: ER 15:18
DX: N39.0 Urinary tract infection, site not specified (principal); R07.89 Other chest pain; R10.13 Epigastric pain; G89.29 Other chronic pain; I10 Essential (primary) hypertension; F17.210 Nicotine dependence, cigarettes, uncomplicated
CPT/HCPCS: 36415; 71046; 80053; 81001; 83690; 84484; 85025; 87086; 87491; 87591; 93005; 99285-25

== ENCOUNTER 2018-05-26 18:07 | Emergency (ER) | payer SELFPAY ==
[~2018-05-26] VITALS: Ht 172.7 cm; Wt 97.5 kg
[~2018-05-26 18:07] MED LIST changes: +CEPH-264 PO; -OXYC-323 PO; +OXYC1TAB15 PO
[2018-05-26 19:16] VITALS: BP 146/94
[2018-05-26] MEDS ORDERED: CYCL10TA2 PO (19:26)
[2018-05-26] MEDS ORDERED: TRAM50TA PO (19:26)
--- NOTE | 2018-05-26 19:27 | PHYS DOC ---
Past Medical History Past Medical History: Hypertension, Other Additional Past Medical Histor: chronic back pain Past Surgical History: Other Additional Past Surgical Histo: testicular surgery as a child Alcohol Use: Occasionally Drug Use: None Adult General Chief Complaint Chief Complaint: BACK PAIN OR INJURY [facility] HPI Patient is a 42 year old -[place] male with history of hypertension, chronic back pain who presents with exacerbation of chronic back pain. Patient states he was doing heavy lifting about a week ago while at work. Reports diffuse low back pain which is nonradiating. Pain is worse with palpation movement. Denies loss of bowel or bladder function. No urinary fecal incontinence. No focal extremity weakness or loss of sensation. No other acute symptoms or complaints. Patient does not currently have a PCP and has not been treated for his current episode of back pain prior to today's ED visit.[] Review of Systems Review of Systems ROS as per HPI All other systems were reviewed and found to be within normal limits, except as documented in this note. Allergies Allergies Allergies Coded Allergies Type Severity Reaction Last Updated Verified No Known Drug Allergies 06/30/13 No Physical Exam Physical Exam Constitutional: Well developed, well nourished, no acute distress, non-toxic appearance. [] HENT: Normocephalic, atraumatic, bilateral external ears normal, oropharynx moist, nose normal. [] Eyes: PERRLA, EOMI, conjunctiva normal. [] Neck: Normal range of motion. [] Cardiovascular:Heart rate regular rhythm, no murmur. [] Lungs & Thorax: Bilateral breath sounds clear to auscultation. [] Abdomen: Bowel sounds normal, soft, no tenderness, no masses. [] Skin: Warm, dry, no erythema, no rash. [] Back: No midline tenderness, no CVA tenderness. Diffuse lower back pain, reproduces with palpation and trunk rotation.[] Extremities: No tenderness, no cyanosis, no clubbing, ROM intact, no edema. [] Neurologic: Alert and oriented X 3, normal motor function, normal sensory function, no focal deficits noted. [] Psychologic: Affect normal, judgement normal, mood normal. [] Current Patient Data Vital Signs Vital Signs Date Time Temp Pulse Resp B/P (MAP) Pulse Ox O2 Delivery O2 Flow Rate FiO2 05/26/18 19:16 98.6 81 18 146/94 (111) 97 Room Air 98.6 EKG EKG [] Radiology/Procedures Radiology/Procedures [] Course & Med Decision Making Course & Med Decision Making Pertinent Labs and Imaging studies reviewed. (See chart for details) [Exacerbation of chronic back pain. No neurologic deficits. Patient is well- known to this emergency department. Recommend supportive care with nonnarcotic pain medications and establishment with local primary care provider.] Dragon Disclaimer Dragon Disclaimer This electronic medical record was generated, in whole or in part, using a voice recognition dictation system. Departure Departure Disposition: HOME, SELF-CARE Condition: GOOD Referrals: NO PCP (PCP) Patient Instructions: Chronic Back Pain Additional Instructions: Please go home and rest. Avoid strenuous physical activity and heavy lifting. Follow-up with local primary care physician early next week for reevaluation. Take newly prescribed medications as directed. Scripts Cyclobenzaprine Hcl (CYCLOBENZAPRINE HCL) 10 Mg Tablet 1 TAB PO TID, #30 TAB Prov: KHADIJAH REBOLLEDO DO 05/26/18 Tramadol Hcl (TRAMADOL HCL) 50 Mg Tablet 50 MG PO Q6H PRN for PAIN for 3 Days, #15 TAB 0 Refills Prov: KHADIJAH REBOLLEDO DO 05/26/18 KHADIJAH REBOLLEDO DO May 26, 2018 19:27
== END 2018-05-26 19:36 | disposition home or self-care (01) ==
LOC: ER 18:07
DX: G89.29 Other chronic pain (principal); M54.5 Low back pain; I10 Essential (primary) hypertension
CPT/HCPCS: 99283

== ENCOUNTER 2018-07-12 22:36 | Emergency (ER) | payer BC ==
[~2018-07-12] VITALS: Ht 172.7 cm; Wt 95.3 kg
[~2018-07-12 22:36] MED LIST changes: +CYCL10TA2 PO; +TRAM50TA PO
[2018-07-12 23:44] VITALS: BP 138/81
--- NOTE | 2018-07-13 00:30 | RAD ---
INDICATION: HEADACHE COMPARISON: November 2009 TECHNIQUE: Axial CT images obtained through the head without intravenous contrast. One or more of the following individualized dose reduction techniques were utilized for this examination: 1. Automated exposure control; 2. Adjustment of the mA and/or kV according to patient size; 3. Use of iterative reconstruction technique. FINDINGS: No intracranial hemorrhage. No midline shift. Basal cisterns patent. Ventricles and sulci are unremarkable. No acute osseous abnormality. Minimal mucosal thickening portion of paranasal sinuses. IMPRESSION: 1. No acute intracranial hemorrhage. Electronically signed by: Isaiah Pastor MD (07/13/2018 12:27 AM) [facility]
[2018-07-13] MEDS: KETOROLAC 60 MG/2 ML VIAL. IM ONE ×2 (01:00→01:25)
[2018-07-13] MEDS: methylPREDNISolone SOD SUCC PF 125 MG/2 ML VIAL. IM ONE ×2 (01:00→01:25)
--- NOTE | 2018-07-13 01:34 | PHYS DOC ---
Past Medical History Past Medical History: No Pertinent History Additional Past Medical Histor: chronic back pain Past Surgical History: Other Additional Past Surgical Histo: TESTICULAR SURGERY IN CHILDHOOD Alcohol Use: Occasionally Drug Use: None Adult General Chief Complaint Chief Complaint: HEADACHE HPI HPI Patient is a 42 year old male presented ER today for evaluation of headache started just couple days ago. Patient denies any fever, no neck pain, no blurry vision. He has history of headache. No CT SCAN of his head was done before to evaluate for his headache. He denies any nausea vomiting. Review of Systems Review of Systems Constitutional: Denies fever or chills [] Eyes: Denies change in visual acuity, redness, or eye pain [] HENT: Denies nasal congestion or sore throat [] Respiratory: Denies cough or shortness of breath [] Cardiovascular: No additional information not addressed in HPI [] GI: Denies abdominal pain, nausea, vomiting, bloody stools or diarrhea [] : Denies dysuria or hematuria [] Musculoskeletal: Denies back pain or joint pain [] Integument: Denies rash or skin lesions [] Neurologic: Positive for headache, no focal weakness or sensory changes [] Endocrine: Denies polyuria or polydipsia [] All other systems were reviewed and found to be within normal limits, except as documented in this note. Current Medications Current Medications Current Medications Medications (Trade) Dose Ordered Sig/Jaylen Start Time Stop Time Status Last Admin Dose Admin Ketorolac Tromethamine (Toradol Im) 60 mg 1X ONCE 07/13/18 01:00 07/13/18 01:01 DC Methylprednisolone Sodium Succinate (SOLU-Medrol 125MG VIAL) 125 mg 1X ONCE 07/13/18 01:00 07/13/18 01:01 DC Allergies Allergies Allergies Coded Allergies Type Severity Reaction Last Updated Verified No Known Drug Allergies 06/30/13 No Physical Exam Physical Exam Constitutional: Well developed, well nourished, no acute distress, non-toxic appearance. [] HENT: Normocephalic, atraumatic, bilateral external ears normal, oropharynx moist, no oral exudates, nose normal. [] Eyes: PERRLA, EOMI, conjunctiva normal, no discharge. [] Neck: Normal range of motion, no tenderness, supple, no stridor. [] Cardiovascular:Heart rate regular rhythm, no murmur [] Lungs & Thorax: Bilateral breath sounds clear to auscultation [] Abdomen: Bowel sounds normal, soft, no tenderness, no masses, no pulsatile masses. [] Skin: Warm, dry, no erythema, no rash. [] Back: No tenderness, no CVA tenderness. [] Extremities: No tenderness, no cyanosis, no clubbing, ROM intact, no edema. [] Neurologic: Alert and oriented X 3, normal motor function, normal sensory function, no focal deficits noted. [] Psychologic: Affect normal, judgement normal, mood normal. [] Current Patient Data Vital Signs Vital Signs Date Time Temp Pulse Resp B/P (MAP) Pulse Ox O2 Delivery O2 Flow Rate FiO2 07/12/18 23:44 76 18 98 07/12/18 22:53 97.8 140/91 (107) Room Air 97.8 EKG EKG [] Radiology/Procedures Radiology/Procedures [][facility] [address] [place] [address] IMAGING REPORT Signed PATIENT: PATT BRAVO ACCOUNT: [id number] : 1975 LOCATION: ER AGE: 42 SEX: M EXAM STATUS: REG ER ORD. PHYSICIAN: SIOMARA MONTANEZ DO REASON: headache PROCEDURE: CT HEAD WO CONTRAST INDICATION: HEADACHE COMPARISON: November 2009 TECHNIQUE: Axial CT images obtained through the head without intravenous contrast. One or more of the following individualized dose reduction techniques were utilized for this examination: 1. Automated exposure control; 2. Adjustment of the mA and/or kV according to patient size; 3. Use of iterative reconstruction technique. FINDINGS: No intracranial hemorrhage. No midline shift. Basal cisterns patent. Ventricles and sulci are unremarkable. No acute osseous abnormality. Minimal mucosal thickening portion of paranasal sinuses. IMPRESSION: 1. No acute intracranial hemorrhage. Electronically signed by: Franco Pastor MD (07/13/2018 12:27 AM) [employer] DICTATED and SIGNED BY: FRANCO PASTOR MD DATE: 07/13/18 0027 Course & Med Decision Making Course & Med Decision Making Pertinent Labs and Imaging studies reviewed. (See chart for details) [] Dragon Disclaimer Dragon Disclaimer This electronic medical record was generated, in whole or in part, using a voice recognition dictation system. Departure Departure Impression: Primary Impression: Headache Disposition: HOME, SELF-CARE Condition: STABLE Referrals: NO PCP (PCP) FOLLOW UP WITH YOUR DOCTOR FOR EVALUATION. Patient Instructions: General Headache Without Cause SIOMARA MONTANEZ DO Jul 13, 2018 01:34
== END 2018-07-13 01:46 | disposition home or self-care (01) ==
LOC: ER 22:36
DX: R51 Headache (principal); G89.29 Other chronic pain
CPT/HCPCS: 70450; J1885; J2930; 99284-25

== ENCOUNTER → 2018-08-21 | Outpatient (CLI) | payer BC ==
--- NOTE | 2018-08-22 09:12 | SLEEP ---
DATE OF STUDY: 08/21/2018 SLEEP STUDY ATTENDING PHYSICIAN: Dr. Thalia Henry. The patient is 42 years old who weighs 218 pounds with a BMI of 32. The patient's [place] score was 10. The patient underwent split night study performed at [facility]. During the night study, the patient spent 404 minutes in bed and slept for 366 minutes with a sleep efficiency of 91%. Sleep latency was 7 minutes with a REM latency of 91 minutes. Overall, sleep architecture showed normal stage 1 sleep, increased stage 2 sleep, absent slow wave sleep and normal REM sleep. During the initial diagnostic portion of the study, the patient slept for 113 minutes. During that time, the patient had 8 obstructive apneas, 8 mixed apneas and no central apneas and 48 hypopneas. The patient's apnea-hypopnea index was 34 per hour with a supine index of 38 per hour and the REM index of 24 per hour. EKG monitoring revealed normal sinus rhythm, average heart rate 74 beats per minute. No arrhythmias observed. Nocturnal oximetry study revealed a mean oxygen saturation of 97% with the lowest of 86%. A 2.6% of the time, oxygen saturation remained between 80% and 89%. PLMS were seen at an index of 1 per hour. The patient met the criteria for CPAP initiation. He was started at 5 cm water and continued at the same pressure. The patient had 253 minutes of sleep. The patient had supine as well as REM sleep. The patient's AHI was reduced to 1 per hour and oxygen saturation remained above 91%. The patient used medium size nasal pillows. IMPRESSION: 1. Severe sleep apnea-hypopnea syndrome at an AHI of 34 per hour. 2. No clinically significant nocturnal hypoxia. 3. No clinically significant periodic limb movements of sleep. RECOMMENDATIONS: 1. CPAP at 5 cm water completely eliminated the patient's sleep apnea and should be used on a nightly basis. 2. Follow up in 4-6 weeks to assess compliance with CPAP and to document clinical improvement. 3. Weight loss is strongly advised. 4. Avoid EDGERMAN depressants. 5. Cautioned regarding driving until symptoms of sleep apnea resolve with the use of CPAP. ANDREW GRANADOS MD DR: ELAINE/sierra JOB#: [id number] / [id number] THALIA Burleson MD
== END | disposition home or self-care (01) ==
LOC: SLPLAB 18:49
PROVIDERS: ATTEND Family Medicine
DX: G47.33 Obstructive sleep apnea (adult) (pediatric) (principal)
CPT/HCPCS: 95810

== ENCOUNTER 2018-09-21 05:56 | Emergency (ER) | payer SELFPAY ==
[~2018-09-21] VITALS: Ht 172.7 cm; Wt 95.3 kg
[2018-09-21 06:10] VITALS: BP 172/95
[2018-09-21] MEDS ORDERED: CYCL5TAB PO (06:28)
--- NOTE | 2018-09-21 06:28 | PHYS DOC ---
Past Medical History Past Medical History: No Pertinent History Additional Past Medical Histor: chronic back pain Past Surgical History: Other Additional Past Surgical Histo: TESTICULAR SURGERY IN CHILDHOOD Alcohol Use: Occasionally Drug Use: None Adult General Chief Complaint Chief Complaint: LOWER BACK PAIN OR INJURY HPI HPI 42-year-old male presenting the emergency department today with left lower back pain that feels like a spasm. This comes and goes is worse when he lifts and bends over. It improved with rest and ice. Last time he took Flexeril which improved his pain. Pain is nonradiating. ros: He denies abdominal pain vomiting diaphoresis chest pain or shortness of breath. All other review of systems is negative unless otherwise noted in history of present illness. ED course: 42-year-old male presenting with left pain in the lower back. Vital signs show blood pressure is elevated. Otherwise unremarkable. On examination his abdomen is soft and nontender. No palpable masses in the abdomen. Patient is comfortable in the examination room. We will give the patient oral Flexeril to follow-up with his doctor in 1-2 days. Review of Systems Review of Systems SEE ABOVE. Allergies Allergies Allergies Coded Allergies Type Severity Reaction Last Updated Verified No Known Drug Allergies 06/30/13 No Physical Exam Physical Exam SEE ABOVE Constitutional: Well developed, well nourished, no acute distress, non-toxic appearance. [] HENT: Normocephalic, atraumatic, bilateral external ears normal, oropharynx moist, no oral exudates, nose normal. [] Eyes: PERRLA, EOMI, conjunctiva normal, no discharge. [] Neck: Normal range of motion, no tenderness, supple, no stridor. [] Cardiovascular:Heart rate regular rhythm, no murmur [] Lungs & Thorax: Bilateral breath sounds clear to auscultation [] Abdomen: Bowel sounds normal, soft, no tenderness, no masses, no pulsatile masses. Skin: Warm, dry, no erythema, no rash. [] Back: No tenderness, no CVA tenderness. [] Extremities: No tenderness, no cyanosis, no clubbing, ROM intact, no edema. [] Neurologic: Alert and oriented X 3, normal motor function, normal sensory function, no focal deficits noted. [] Psychologic: Affect normal, judgement normal, mood normal. [] EKG EKG [] Radiology/Procedures Radiology/Procedures [] Course & Med Decision Making Course & Med Decision Making Pertinent Labs and Imaging studies reviewed. (See chart for details) [] Dragon Disclaimer Dragon Disclaimer This electronic medical record was generated, in whole or in part, using a voice recognition dictation system. Departure Departure Impression: Primary Impression: Low back pain Disposition: 01 HOME, SELF-CARE Condition: STABLE Referrals: THALIA GAVIRIA MD (PCP) Patient Instructions: Back Pain, Adult Additional Instructions: Thank you for allowing us to participate in your care today. Return to the emergency department you have any new or worsening symptoms, or if you are concerned for any reason. Return to emergency department if you have any new or concerning symptoms including but not limited to fever, chills, nausea, vomiting, intractable pain, any new rashes, chest pain, shortness of air, uncontrolled bleeding, difficulty breathing, and/or vision loss. Follow up with your primary care physician within 1-2 days. Call your Primary Doctor tomorrow and inform them of your visit today. If you do not have a primary care provider we are happy to provide you with a list of our primary care providers contact information. This condition should be evaluated by your primary care physician and any recommended consulting services for continued management within 2 days after discharge. If at any time, you are having difficulty getting into your primary care doctor or a specialist, return to the emergency department. Scripts Cyclobenzaprine Hcl (CYCLOBENZAPRINE HCL) 5 Mg Tablet 1 TAB PO TID PRN PRN for PAIN, #20 TAB Prov: LUCILLE SALVADOR MD 09/21/18 LUCILLE SALVADOR MD Sep 21, 2018 06:28
== END 2018-09-21 06:49 | disposition home or self-care (01) ==
LOC: ER 05:56
DX: M54.5 Low back pain (principal); G89.29 Other chronic pain
CPT/HCPCS: 99283